=== PATIENT | male | born 1975 | race African-American/Black ===

== ENCOUNTER 2023-12-06 10:10 | Emergency (ER) | payer MEDICAID ==
[~2023-12-06] VITALS: Ht 175.3 cm; Wt 82.0 kg
[2023-12-06] MEDS ORDERED: albuterol (10:16)
[2023-12-06 10:17] VITALS: TEMP 98.6; O2SAT 98
[2023-12-06] MEDS: DEXAMETHASONE 4MG/ML 1ML VIAL IM ONE (14:19)
[2023-12-06 14:21] VITALS: PULSE 88; RESP 20
[2023-12-06] MEDS: ALBUTEROL (0.083%) 2.5MG/3ML NEB HHN STA (14:21)
[2023-12-06] MEDS: IPRATROPIUM BROMIDE (0.02%) 0.5MG/2.5ML NEB HHN STA (14:21)
[2023-12-06] MEDS ORDERED: ALBUTEROL (0.5%) 2.5MG/0.5ML NEB HHN ONE (15:21)
[2023-12-06 15:33] VITALS: PULSE 89; RESP 18
[2023-12-06] MEDS: ALBUTEROL (0.083%) 2.5MG/3ML NEB HHN ONE (15:33)
[2023-12-06] MEDS ORDERED: ALBU6.7H15 INH (17:04)
[2023-12-06] MEDS ORDERED: P50 MT (17:04)
[2023-12-06 17:24] VITALS: BP 162/87; PULSE 102; RESP 19
== END 2023-12-06 17:25 | disposition home or self-care (01) ==
LOC: ER 10:10
DX: J45.901 Unspecified asthma with (acute) exacerbation (principal)
CPT/HCPCS: 94640; 96372; 99284; J1100; Z7610 ×4